=== PATIENT | male | born 1955 | race Caucasian/White ===

== ENCOUNTER 2020-06-30 11:23 | Emergency (ER) | payer OTHER ==
[~2020-06-30] VITALS: Ht 185.4 cm; Wt 102.1 kg
--- NOTE | 2020-06-30 11:50 | NUR ---
dr lowery at bedside for eval.
[2020-06-30] MEDS ORDERED: CEFTRIAXONE 1GM BAG (ER ONLY) 50 ML IV ONE (11:54)
[2020-06-30] MEDS ORDERED: KETOROLAC TROMETHAMINE INJ 30 MG/ML VIAL ONE (11:54)
[2020-06-30] MEDS ORDERED: CEFTRIAXONE 1GM BAG (ER ONLY) 1 GM/50 ML PIGGYBACK IV ONE (12:00)
[2020-06-30] MEDS ORDERED: IV NS 0.9% 1,000 ML BAG IV ONE (12:00)
[2020-06-30] MEDS ORDERED: KETOROLAC TROMETHAMINE INJ 30 MG/ML VIAL IV ONE (12:00)
--- NOTE | 2020-06-30 12:04 | NUR ---
iv line started blood drawn and sent to lab.
--- NOTE | 2020-06-30 12:07 | NUR ---
patient to radiology for abdominal ct scan via gurney.
[2020-06-30] MEDS ORDERED: AMLO-213 PO (12:20)
[2020-06-30] MEDS ORDERED: ISON300T27 PO (12:20)
[2020-06-30] MEDS ORDERED: ATOR20TA PO (12:20)
[2020-06-30] MEDS ORDERED: RAMI10CA69 PO (12:20)
[2020-06-30] MEDS ORDERED: ASPI-1498 PO (12:20)
[2020-06-30] MEDS ORDERED: BISO1TAB4 PO (12:20)
[2020-06-30] MEDS ORDERED: TAMS-12 PO (12:20)
[2020-06-30] MEDS ORDERED: HYDR-4077 PO (12:20)
[2020-06-30 12:44] LABS: BASOPHILS # (AUTO) 0.1 /CMM (0.0-0.2); BASOPHILS % (AUTO) 0.5 % (0.0-2.0); EOSINOPHILS % (AUTO) 0.6 % (0.0-6.0); HEMATOCRIT 38 % (39-51); HEMOGLOBIN 12.1 g/dL (13.5-17.5); LYMPHOCYTES % (AUTO) 28.5 % (20.0-44.0); MEAN CORPUSCULAR HGB CONC 32 g/dl (31.0-36.0); MEAN CORPUSCULAR VOLUME 86 fL (80-96); MONOCYTES # (AUTO) 0.9 /CMM (0.1-1.30); MONOCYTES % (AUTO) 8.2 % (2.0-12.0); NEUTROPHILS # (AUTO) 6.5 /CMM (1.8-8.9); NEUTROPHILS % (AUTO) 62.2 % (43.0-81.0); PLATELET COUNT (AUTO) 382 /CMM (150-450); WHITE BLOOD COUNT (AUTO) 10.4 K/uL (4.3-11.0)
[2020-06-30 12:59] LABS: CALCIUM, SERUM 9.1 mg/dL (8.5-10.1); POTASSIUM 4.2 mmol/L (3.5-5.1)
[2020-06-30 13:28] LABS: BILIRUBIN,URINE NEGATIVE (NEGATIVE); COLOR,URINE YELLOW (YELLOW); LEUKOCYTE ESTERASE ,URINE SMALL (NEGATIVE); NITRITE, URINE NEGATIVE (NEGATIVE); PROTEIN,URINE NEGATIVE (NEGATIVE); UGLUCOSE NEGATIVE (NEGATIVE); UROBILINOGEN,URINE 0.2 EU/dL (0.2)
[2020-06-30 13:49] LABS: BACTERIA,URINE Rare /HPF (None Seen)
[2020-06-30 13:50] LABS: SQUAMOUS EPITHELIAL CELL,UR Few /HPF (None Seen)
--- NOTE | 2020-06-30 14:17 | NUR ---
Patient discharged to home in stable condition. Written and verbal after care instructions given. Patient verbalizes understanding of instruction.IV removed. Catheter intact and site benign. Pressure and 4x4 applied to site. No bleeding noted.
[2020-06-30 14:18] VITALS: BP 132/84
== END 2020-06-30 14:18 | disposition home or self-care (01) ==
LOC: ER 11:35
DX: N34.2 Other urethritis (principal); I10 Essential (primary) hypertension; Z98.890 Other specified postprocedural states; Z87.442 Personal history of urinary calculi; Z79.899 Other long term (current) drug therapy
CPT/HCPCS: 36415; 74176; 80048; 81001; 85025; 87086; 96365; 96375; 99284; J0696; J1885; J7030

== ENCOUNTER 2021-06-21 12:24 | Inpatient (IN) | payer OTHER ==
[~2021-06-21] VITALS: Ht 185.4 cm; Wt 100.7 kg
[~2021-06-21 12:24] MED LIST: AMLO-213 PO; ASPI-1498 PO; ATOR20TA PO; BISO1TAB4 PO; HYDR-4077 PO; ISON300T27 PO; RAMI10CA69 PO; TAMS-12 PO
--- NOTE | 2021-06-21 12:30 | NUR ---
[facility]UELL[facility] HOME FOR NOTED CONFUSION UPON WAKING UP AT 0600. LKW 2200 LAST NIGHT BEFORE GOING TO BED. VITALS ARE WITHIN NORMAL LIMITS. BREATHING IS EVEN AND UNALBORED ON ROOM AIR. Addendum: 06/21/21 at 1348 by CARMELO URINE COLLECTED AND SENT
--- NOTE | 2021-06-21 13:06 | NUR ---
BG 108
--- NOTE | 2021-06-21 13:27 | NUR ---
PT TAKEN TO CT
--- NOTE | 2021-06-21 13:38 | NUR ---
PT RETURNED FROM CT
--- NOTE | 2021-06-21 13:46 | NUR ---
URINE COLLECTED AND SENT
--- NOTE | 2021-06-21 13:48 | NUR ---
LAB AT BEDSIDE
[2021-06-21] MEDS ORDERED: ERGO500093 PO (14:19)
[2021-06-21] MEDS ORDERED: FERR325T23 PO (14:19)
[2021-06-21] MEDS ORDERED: GABA-532 PO (14:19)
[2021-06-21] MEDS ORDERED: ASPI-1420 PO (14:19)
[2021-06-21] MEDS ORDERED: DOXA2TAB2 PO (14:19)
[2021-06-21] MEDS ORDERED: ASCO-352 PO (14:19)
[2021-06-21] MEDS ORDERED: AZIT250T13 MT (14:19)
[2021-06-21 14:44] LABS: BILIRUBIN,URINE NEGATIVE (NEGATIVE); COLOR,URINE YELLOW (YELLOW); LEUKOCYTE ESTERASE ,URINE TRACE (NEGATIVE); NITRITE, URINE NEGATIVE (NEGATIVE); PROTEIN,URINE TRACE mg/dl (NEGATIVE); UGLUCOSE NEGATIVE (NEGATIVE); UROBILINOGEN,URINE 0.2 EU/dL (0.2)
[2021-06-21 14:50] LABS: BASOPHILS # (AUTO) 0.1 K/uL (0.0-0.2); BASOPHILS % (AUTO) 0.9 % (0.0-2.0); EOSINOPHILS % (AUTO) 0.1 % (0.0-6.0); HEMATOCRIT 29 % (39-51); HEMOGLOBIN 9.4 g/dL (13.5-17.5); LYMPHOCYTES # (AUTO) 2.1 K/uL (0.8-4.8); LYMPHOCYTES % (AUTO) 24.4 % (20.0-44.0); MEAN CORPUSCULAR HGB CONC 32 g/dl (31.0-36.0); MEAN CORPUSCULAR VOLUME 87 fL (80-96); MONOCYTES # (AUTO) 0.9 K/uL (0.1-1.30); MONOCYTES % (AUTO) 10.6 % (2.0-12.0); NEUTROPHILS # (AUTO) 5.5 K/uL (1.8-8.9); PLATELET COUNT (AUTO) 260 K/uL (150-450); RED BLOOD CELL COUNT(AUTO) 3.37 MIL/uL (4.5-6.0); WHITE BLOOD COUNT (AUTO) 8.5 K/uL (4.3-11.0)
--- NOTE | 2021-06-21 15:16 | NUR ---
SPOKE TO PATIENTS DAUGHTER [phone]
[2021-06-21 16:01] LABS: CALCIUM, SERUM 9.3 mg/dL (8.5-10.1); CARBON DIOXIDE 26 mmol/L (21-32); CHLORIDE 100 mmol/L (98-107); CREATININE 2.1 mg/dL (0.6-1.3); GLUCOSE 115 mg/dL (74-106); POTASSIUM 4.1 mmol/L (3.5-5.1); SERUM AMMONIA 8 umol/L (11-32); SODIUM SERUM 134 mmol/L (136-145); UREA NITROGEN, BLOOD 31 mg/dL (7-18)
[2021-06-21 16:12] LABS: ALANINE AMINOTRANSFERASE 16 U/L (12-78); ALBUMIN 3.2 g/dL (3.4-5.0); ALKALINE PHOSPHATASE 99 U/L (46-116); ASPARTATE AMINOTRANSFERASE 19 U/L (15-37); BILIRUBIN,DIRECT 0.1 mg/dL (0.0-0.2); BILIRUBIN,TOTAL 0.2 mg/dL (0.2-1.0); TOTAL PROTEIN, SERUM 9.4 g/dL (6.4-8.2)
[2021-06-21 16:15] LABS: THYROID STIMULATING HORMONE 0.957 uIU/mL (0.358-3.74)
[2021-06-21 16:28] LABS: ACETAMINOPHEN < 0 ug/ml (10-30); ALCOHOL, BLOOD < 3 mg/dL (0-0)
[2021-06-21] MEDS ORDERED: AZITHROMYCIN 500 MG in IV D5W 250 ML IV ONE (16:30)
[2021-06-21] MEDS ORDERED: MORPHINE SULFATE INJ 2 MG/ML DISP.SYRIN IV PRN (16:30)
[2021-06-21] MEDS ORDERED: ONDANSETRON HCL/PF 4 MG/2 ML VIAL IVP PRN (16:30)
[2021-06-21] MEDS ORDERED: CEFTRIAXONE 1 G in IV D5W 50 ML IV ONE (16:30)
[2021-06-21] MEDS ORDERED: ACETAMINOPHEN 325 MG TABLET PO PRN (16:30)
[2021-06-21] MEDS ORDERED: Z GUARD REMEDY 4 OZ OINT TP PRN (16:30)
[2021-06-21 16:54] LABS: BACTERIA,URINE None seen /HPF (None Seen); RBC,URINE 0-2 /HPF (0-2); SQUAMOUS EPITHELIAL CELL,UR Rare /HPF (None Seen); WBC,URINE 0-2 /HPF (0-3)
[2021-06-21] MEDS ORDERED: IV NS 0.9% 250 ML IV ONE (17:39)
[2021-06-21] MEDS ORDERED: IOHEXOL-350 100 ML VIAL IV ONE (17:39)
--- NOTE | 2021-06-21 18:06 | NUR ---
COVID ANTIGEN SWAB OBTAINED AND SENT TO LAB
--- NOTE | 2021-06-21 19:37 | NUR ---
CALLED [facility] ER. SPOKE TO TRUPTI . CHARGE NURSE IS CRISTHIAN AND DEALING WITH TRAUMA PT AT THIS TIME.
--- NOTE | 2021-06-21 19:38 | NUR ---
MISTY KANG (+); LAW AWARE. CONTACT DROPLET ISO PRECAUTIONS IN PLACE
--- NOTE | 2021-06-21 19:42 | NUR ---
CALLED [facility] TRANSFER LINE. PER ANDREI THEY'RE AT [place]. WILL FAX OVER THE INQUIRIES FOR REVIEW AT [phone]
--- NOTE | 2021-06-21 20:00 | NUR ---
SPOKE TO CHACHO AT [facility] ([phone]) AND FAXED FACE SHEET AND CLINICALS TO [phone]
--- NOTE | 2021-06-21 20:04 | NUR ---
SPOKE TO HONORIO AT [facility]. THEY'RE COMPLETELY FULL AND UNABLE TO ACCEPT THE PT.
--- NOTE | 2021-06-21 20:14 | NUR ---
WADE ENG AT [facility] FOR POSSIBLE TRANSFER FOR HIGHER LOC
--- NOTE | 2021-06-21 20:51 | NUR ---
REC'D A CALL FROM ELAINE AT [facility]. CASE IS REVIEWED. UNABLE TO ACCPET THE PT DUE TO AT [facility]
[2021-06-21] MEDS ORDERED: CEFEPIME 2 GM in IV D5W 100 ML IV SCH (21:00)
[2021-06-21] MEDS: hydrALAZINE HCL 50 MG TABLET PO SCH (21:03)
[2021-06-21] MEDS: VANCOMYCIN 1.5 GM in IV D5W 500 ML IV SCH (21:03)
[2021-06-21] MEDS: DOXAZOSIN MESYLATE (1 MG) 1 MG TABLET PO SCH (21:03)
[2021-06-21] MEDS: FERROUS SULFATE (325 MG) 325 MG/TAB TABLET PO SCH (21:03)
[2021-06-21] MEDS: ENOXAPARIN SODIUM 40 MG/0.4 ML DISP.SYRIN SQ SCH (21:05)
[2021-06-21] MEDS ORDERED: GABAPENTIN 300 MG CAPSULE ONE (21:33)
[2021-06-21] MEDS ORDERED: ATORVASTATIN 10 MG TABLET ONE (21:33)
[2021-06-21] MEDS: ATORVASTATIN 10 MG TABLET PO SCH (21:41)
[2021-06-21] MEDS: GABAPENTIN 300 MG CAPSULE PO SCH (21:41)
--- NOTE | 2021-06-21 22:56 | NUR ---
ADL'S DONE. LARGE BM X1 & URINE X2. PATIENT KEPT CLEAN AND DRY. PT SATTING 88% R/A WHEN SLEEPING. PUT ON O2 2LPM VIA N/C; SATTING 95%
[2021-06-21] MEDS: IV NS 0.9% 1,000 ML IV PRN (23:25)
[2021-06-22] MEDS ORDERED: PIPERACILLIN /TAZOBACTAM 2.25 G VIAL IV ONE (02:18)
[2021-06-22] MEDS: PIPERACILLIN /TAZOBACTAM 2.25 G in IV D5W 50 ML IV SCH ×4 (02:28→17:49)
--- NOTE | 2021-06-22 04:26 | NUR ---
LAB AT BEDSIDE
[2021-06-22 05:17] LABS: BASOPHILS % (AUTO) 0.3 % (0.0-2.0); HEMATOCRIT 32 % (39-51); HEMOGLOBIN 10.2 g/dL (13.5-17.5); LYMPHOCYTES # (AUTO) 0.8 K/uL (0.8-4.8); MEAN CORPUSCULAR HGB CONC 32 g/dl (31.0-36.0); MEAN CORPUSCULAR VOLUME 85 fL (80-96); MONOCYTES # (AUTO) 1.2 K/uL (0.1-1.30); MONOCYTES % (AUTO) 6.8 % (2.0-12.0); NEUTROPHILS # (AUTO) 14.8 K/uL (1.8-8.9); NEUTROPHILS % (AUTO) 87.9 % (43.0-81.0); PLATELET COUNT (AUTO) 271 K/uL (150-450); RED BLOOD CELL COUNT(AUTO) 3.74 MIL/uL (4.5-6.0); WHITE BLOOD COUNT (AUTO) 16.9 K/uL (4.3-11.0)
[2021-06-22 05:27] LABS: BILIRUBIN,TOTAL 0.1 mg/dL (0.2-1.0); CALCIUM, SERUM 8.6 mg/dL (8.5-10.1); CREATININE 2.1 mg/dL (0.6-1.3); PHOSPHORUS 3.3 mg/dL (2.5-4.9); POTASSIUM 4.1 mmol/L (3.5-5.1); TOTAL PROTEIN, SERUM 8.9 g/dL (6.4-8.2)
--- NOTE | 2021-06-22 05:37 | NUR ---
ADLS DONE. REPOSITIONED PT. LARGE URINE X1. PT KEPT CLEAN AND DRY. VSS. PT TOLERATING 2LPM VIA N/C AT 98%
--- NOTE | 2021-06-22 07:18 | NUR ---
CALLED BERNARDO (DAUGHTER) [phone] FOR CONSENT FOR US GUIDED THORACENTESIS L LARGE PLEURAL EFFUSION. DAUGHTER WILL SPEAK TO PT'S ONCOLOGIST AND INFORM STAFF DECISION OF PROCEDURE.
--- NOTE | 2021-06-22 08:20 | NUR ---
FOLLOWED UP WITH DAUGHTER BERNARDO ABOUT GETTING COSENT FOR ASHLEY AND SHE WAS UNABLE TO CONTACT HIS ONCOLOGIST AT THE MOMENT. SHE STATED THE OFFICE OPENS AT 0900. WILL FOLLOW UP.
[2021-06-22] MEDS ORDERED: VANCOMYCIN HCL 1.25 GM in IV D5W 260 ML IV SCH (09:00)
[2021-06-22] MEDS ORDERED: FERROUS SULFATE (325 MG) 325 MG/TAB TABLET ONE (09:42)
[2021-06-22] MEDS ORDERED: ATENOLOL 50 MG TABLET ONE (09:42)
[2021-06-22] MEDS ORDERED: ASCORBIC ACID 500 MG TABLET ONE (09:42)
[2021-06-22] MEDS ORDERED: ASPIRIN EC 81 MG TABLET.DR PO ONE (09:42)
[2021-06-22] MEDS ORDERED: AMLODIPINE BESYLATE 10 MG TABLET ONE (09:43)
[2021-06-22] MEDS ORDERED: LISINOPRIL (20MG) 20 MG TABLET ONE (09:43)
--- NOTE | 2021-06-22 09:44 | NUR ---
CARDIAC DIET REGULAR ORDER OBTAINED FROM DR AMBRIZ. THE ORDER IS READ BACK, VERIFIED. NOTED AND CARRIED OUT
[2021-06-22] MEDS: ASPIRIN EC 81 MG TABLET.DR PO SCH (09:46)
[2021-06-22] MEDS: FERROUS SULFATE (325 MG) 325 MG/TAB TABLET PO SCH ×2 (09:47→17:40)
[2021-06-22] MEDS: ASCORBIC ACID 500 MG TABLET PO SCH (09:47)
[2021-06-22] MEDS: hydrALAZINE HCL 50 MG TABLET PO SCH ×3 (10:00→17:41)
[2021-06-22] MEDS: AMLODIPINE BESYLATE 10 MG TABLET PO SCH (10:00)
[2021-06-22] MEDS: HYDROCHLOROTHIAZIDE 25 MG TABLET PO SCH (10:00)
[2021-06-22] MEDS: ATENOLOL 50 MG TABLET PO SCH (10:00)
[2021-06-22] MEDS: LISINOPRIL (20MG) 20 MG TABLET PO SCH (10:00)
--- NOTE | 2021-06-22 10:12 | NUR ---
RECIVED CONSENT FROM DAUGHTER BERNARDO FOR THORANCENTESIS OVER THE PHONE, CONFIRMED BY LIBORIO JAUREGUI.
[2021-06-22] MEDS ORDERED: HYDROCHLOROTHIAZIDE 25 MG TABLET ONE (10:16)
[2021-06-22] MEDS ORDERED: TRIAZOLAM 0.125 MG TABLET PO SCH (11:30)
--- NOTE | 2021-06-22 11:48 | NUR ---
PT SLEEPING IN MED, EASILY AROUSABLE. VS STABLE. WILL CONTINUE TO MONITOR.
[2021-06-22] MEDS ORDERED: hydrALAZINE HCL 50 MG TABLET ONE (13:33)
--- NOTE | 2021-06-22 13:50 | NUR ---
DR. ZENG CONTACTED REGARDING BP 86/53
[2021-06-22] MEDS ORDERED: MIDODRINE HCL (5MG) 5 MG TABLET ONE (14:25)
[2021-06-22] MEDS ORDERED: MIDODRINE HCL (5MG) 5 MG TABLET PO STA (14:26)
--- NOTE | 2021-06-22 14:27 | NUR ---
RECEIVED ORDERS FROM DR AMBRIZ: NORMAL SALINE 1000 ML WIDE OPEN ONCE AND MIDODRINE 10MG PO ONCE STAT. THE ORDERS ARE READ BACK, VERIFIED. NOTED AND CARRIED OUT.
[2021-06-22] MEDS ORDERED: IV NS 0.9% 1,000 ML IV ONE (14:30)
--- NOTE | 2021-06-22 15:28 | NUR ---
Giselle duran in [facility] - 06/22/21 at 1538 by [place] [id number]
--- NOTE | 2021-06-22 15:38 | NUR ---
ROOM 116-2
--- NOTE | 2021-06-22 15:50 | NUR ---
PER DR AMBRIZ, INCREASE FLUID RATE TO 100ML/HR
--- NOTE | 2021-06-22 16:01 | NUR ---
REPORT GIVEN TO JUVENTINO JULES
--- NOTE | 2021-06-22 16:20 | NUR ---
PT TRANSPORTED TO FLOOR FOLLOWING [facility] WITH EMT AND RN
--- NOTE | 2021-06-22 16:30 | NUR ---
RN ADMITTING NOTES RECEIVED PATIENT FROM ER DEPT. REPORT TAKEN FROM QUANG JAUREGUI. PATIENT ADMITTING DX IS AMS, PATIENT IS COVID POSITIVE, PATIENT AWAKE, ALERT/ORIENTED X 1, CONFUSED. BREATHING EVEN AND UNLABORED ON O2 2LPM VIA NC TOLERATING WELL. VITAL SIGNS: TEMP-98.2, HR-85, RR-20, O2 SAT-99%, BP-104/72. PATIENT HAS IV ACCESS ON RIGHT AC #20G PATENT AND INTACT INFUSING NS 100 ML/HR. PATIENT HAS CHEMO PORT ON RIGHT CHEST AND SCAR ON LEFT BACK, S/P THORACENTESIS WITH INTACT DRESSING ON LEFT BACK, INTACT NO BLEEDING NOTED. PHOTOS TAKEN AND PUT IN CHART. ALL APPLICABLE ISOLATION PRECAUTIONS IN PLACE. ALL SAFETY MEASURES IN PLACE. HOB ELEVATED. BED LOCKED AND IN LOWEST POSITION SIDERAILS UP. CALL LIGHT WITHIN REACH. WILL CONTINUE TO MONITOR PATIENT ACCORDINGLY.
[2021-06-22] MEDS: DOXAZOSIN MESYLATE (1 MG) 1 MG TABLET PO SCH (17:40)
--- NOTE | 2021-06-22 19:35 | NUR ---
RN OPENING NOTES PATIENT RECEIVED IN BED ALERT, AWAKE, ORIENTED X1, VERBALLY RESPONSIVE. LITHUANIAN SPEAKING. ON O2 2LPM VIA N/C AND TOLERATING WELL. NO SOB NOTED. BREATHING EVEN AND UNLABORED. IV ACCESS RAC WITH 18G INTACT AND PATENT, INFUSING NS @ 100ML/HR. NO S/S OF INFILTRATIONS. NO FACIAL GRIMACING NOTED. NO ACUTE DISTRESS. ALL SAFETY MEASURES IN PLACE. BED LOCKED AND IN LOWEST POSITION. SIDERAILS UP X3. PLACE CALL LIGHT WITHIN REACH. WILL CONTINUE TO MONITOR
--- NOTE | 2021-06-22 19:47 | NUR ---
RN CLOSING NOTES PATIENT IN STABLE CONDITION THROUGHOUT SHIFT. ON O2 2LPM VIA NC, TOLERATING WELL. BREATHING EVEN AND UNLABORED. NO SOB OR ANY SIGNS OF RESPIRATORY DISTRESS NOTED. IV ACCESS ON RIGHT AC #18G INTACTAND PATENT INFUSING NS @ 100ML/HR. NO SIGNS OF INFILTRATIONS. ALL DUE MEDS GIVEN ORDERED. ALL NEEDS ATTENDED. KEPT DRY AND CLEAN. ALL APPLICABLE ISOLATIONS PRECAUTIONS IN PLACE. ALL SAFETY MEASURES IN PLACE. BED LOCKED AND IN LOWEST POSITION WITH SIDERAILS UP. CALL LIGHT PLACED WITHIN REACH. ENDORSE TO ONCOMING NURSE FOR DUSTY.
[2021-06-22 20:00] VITALS: BP 88/48
[2021-06-22] MEDS: VANCOMYCIN 1.5 GM in IV D5W 500 ML IV SCH (20:09)
--- NOTE | 2021-06-22 21:15 | NUR ---
RN NOTES: PT'S IV ACCES ON RAC INFILTRATED. TRIED SEVERAL TIMES. UNABLE TO INSERT ANOTHER ONE. NOTIFIED LAWSON SWARTZ. ORDER MIDLINE INSERTION. NOTED AND CARRIED OUT. EDUCATION TECHNICIAN AWARE. WILL CONTINUE TO MONITOR
--- NOTE | 2021-06-22 21:37 | NUR ---
RN NOTES: TALKED TO DAUGHTER SANDY. SHE WANTS HER FATHER TO BE FULL CODE. NOTIFIED DR. PATSY PATHAK. HE AGREED. ORDER MADE
[2021-06-22] MEDS: ENOXAPARIN SODIUM 40 MG/0.4 ML DISP.SYRIN SQ SCH (21:42)
[2021-06-22] MEDS: GABAPENTIN 300 MG CAPSULE PO SCH (21:42)
[2021-06-22] MEDS: ATORVASTATIN 10 MG TABLET PO SCH (21:43)
[2021-06-23] VITALS: BP 98/53
--- NOTE | 2021-06-23 01:00 | NUR ---
RN NOTES: MIDLINE INSERTED BY MIDLINE NURSE ON MANSOOR #18G. INTACT AND PATENT. NO BLEEDING NOTED. PT TOLERATED WELL.
[2021-06-23] MEDS: PIPERACILLIN /TAZOBACTAM 2.25 G in IV D5W 50 ML IV SCH ×3 (01:13→12:06)
[2021-06-23 04:00] VITALS: BP 99/46
[2021-06-23] MEDS: IV NS 0.9% 1,000 ML IV PRN (04:33)
[2021-06-23 07:00] LABS: CREATININE 3.3 mg/dL (0.6-1.3); PHOSPHORUS 6.1 mg/dL (2.5-4.9); POTASSIUM 4.4 mmol/L (3.5-5.1)
[2021-06-23] MEDS ORDERED: MIDODRINE HCL (5MG) 5 MG TABLET PO SCH ×2 (07:30→13:00)
--- NOTE | 2021-06-23 07:35 | NUR ---
RN OPENING NOTES RECEIVED PATIENT IN BED ALERT, AWAKE, ORIENTED X1, VERBALLY RESPONSIVE. LUXEMBOURGISH SPEAKING. ON O2 2LPM VIA N/C AND TOLERATING WELL. ON TELE MONITOR READING SB- HR 58. NO SOB NOTED OR ANY DISTRESS NOTED.. BREATHING EVEN AND UNLABORED. IV ACCESS ON MANSOOR MIDLINE INTACT AND PATENT, INFUSING NS @ 100ML/HR. NO S/S OF INFILTRATIONS. NO FACIAL GRIMACING NOTED. ALL APPLICABLE ISOLATION PRECAUTIONS IN PLACE. ALL SAFETY MEASURES IN PLACE. HOB ELEVATED. BED LOCKED AND IN LOWEST POSITION. SIDERAILS UP X3. PLACE CALL LIGHT WITHIN REACH. WILL CONTINUE TO MONITOR PATIENT ACCORDINGLY.
[2021-06-23 07:49] LABS: BASOPHILS % (AUTO) 0.5 % (0.0-2.0); EOSINOPHILS % (AUTO) 0.3 % (0.0-6.0); HEMATOCRIT 28 % (39-51); HEMOGLOBIN 9.3 g/dL (13.5-17.5); LYMPHOCYTES # (AUTO) 1.9 K/uL (0.8-4.8); LYMPHOCYTES % (AUTO) 25.4 % (20.0-44.0); MEAN CORPUSCULAR HGB CONC 33 g/dl (31.0-36.0); MEAN CORPUSCULAR VOLUME 86 fL (80-96); MONOCYTES # (AUTO) 0.9 K/uL (0.1-1.30); MONOCYTES % (AUTO) 11.4 % (2.0-12.0); NEUTROPHILS # (AUTO) 4.7 K/uL (1.8-8.9); NEUTROPHILS % (AUTO) 62.4 % (43.0-81.0); PLATELET COUNT (AUTO) 224 K/uL (150-450); RED BLOOD CELL COUNT(AUTO) 3.31 MIL/uL (4.5-6.0); WHITE BLOOD COUNT (AUTO) 7.5 K/uL (4.3-11.0)
[2021-06-23 08:00] VITALS: BP 94/49
[2021-06-23 08:54] LABS: ALBUMIN 2.6 g/dL (3.4-5.0); BILIRUBIN,DIRECT 0.1 mg/dL (0.0-0.2); BILIRUBIN,TOTAL 0.2 mg/dL (0.2-1.0); TOTAL PROTEIN, SERUM 7.7 g/dL (6.4-8.2)
[2021-06-23] MEDS: ASPIRIN EC 81 MG TABLET.DR PO SCH (08:57)
[2021-06-23] MEDS: FERROUS SULFATE (325 MG) 325 MG/TAB TABLET PO SCH (08:57)
[2021-06-23] MEDS: ASCORBIC ACID 500 MG TABLET PO SCH (08:57)
[2021-06-23] MEDS: hydrALAZINE HCL 50 MG TABLET PO SCH ×2 (08:58→12:06)
[2021-06-23] MEDS: LISINOPRIL (20MG) 20 MG TABLET PO SCH (08:59)
[2021-06-23] MEDS: HYDROCHLOROTHIAZIDE 25 MG TABLET PO SCH (08:59)
[2021-06-23] MEDS: AMLODIPINE BESYLATE 10 MG TABLET PO SCH (08:59)
[2021-06-23] MEDS: ATENOLOL 50 MG TABLET PO SCH (09:00)
[2021-06-23] MEDS ORDERED: LEVO750T46 PO (10:47)
[2021-06-23 12:00] VITALS: BP 101/48
[2021-06-23 12:06] VITALS: BP 101/48
--- NOTE | 2021-06-23 12:26 | NUR ---
RN NOTES PATIENT ON ROOM AIR TOLERATING WELL WITH SATURATION AT 96%. BREATHING EVEN AND UNLABORED. NO SOB OR ANY ACUTE DISTRESS NOTED. NO NEED FOR SUPPLEMENTAL OXYGEN. OK FOR DISCHARGE. FRONT OFFICE AGENT MADE AWARE.
--- NOTE | 2021-06-23 13:15 | NUR ---
RN NOTES PATIENT DISCHARGED IN STABLE CONDITION. ON ROOM AIR TOLERATING WELL. BREATHING EVEN AND UNLABORED. NO SOB OR ANY ACUTE DISTRESS NOTED. NO CO/O PAIN/DISCOMFORT AT THE TIME. REMOVED TELE MONITOR AND MIDLINE FROM PATIENT, TOLERATED WELL SCANT BLEEDING NOTED. ALL BELONGINGS ACCOUNTED FOR, SIGNED AND GIVEN TO PATIENT. DISCHARGE INSTRUCTIONS SIGNED AND GIVEN TO PATIENT. ALL DUE MEDS GIVEN ORDERED. KEPT PATIENT DRY AND CLEAN. ALL NEEDS MET. PATIENT WHEELED OUT OF HOSPITAL. DAUGHTER BERNARDO WAITING OUTSIDE. PATIENT LEFT HOSPITAL VIA PRIVATE CAR WITH DAUGHTER.
[2021-06-27] MEDS ORDERED: ERGOCALCIFEROL (VITAMIN D 2) 50,000 UNIT CAPSULE PO SCH (16:30)
== END 2021-06-23 13:33 | disposition home or self-care (01) | DRG 137 ==
LOC: ER 12:41 → MED 18:59 → UNDOADMIN 18:59 → TRANSITION 21:33 → TELE 06-22 15:50 → TELE1 06-22 17:05
PROVIDERS: ADMIT Internal Medicine; ATTEND Internal Medicine
PROC: 0W9B3ZZ Drainage of Left Pleural Cavity, Percutaneous Approach (ICD-10-PCS; 2021-06-22)
PROC: 05HA33Z Insertion of Infusion Device into Left Brachial Vein, Percutaneous Approach (ICD-10-PCS; principal; 2021-06-23)
DX: U07.1 COVID-19 (principal); J12.82 Pneumonia due to coronavirus disease 2019; G93.41 Metabolic encephalopathy; N17.9 Acute kidney failure, unspecified; J90 Pleural effusion, not elsewhere classified; D64.9 Anemia, unspecified; C34.90 Malignant neoplasm of unspecified part of unspecified bronchus or lung; I12.9 Hypertensive chronic kidney disease with stage 1 through stage 4 chronic kidney disease, or unspecified chronic kidney disease; N18.9 Chronic kidney disease, unspecified; I71.2 Thoracic aortic aneurysm, without rupture; E78.5 Hyperlipidemia, unspecified; Z87.442 Personal history of urinary calculi; Z90.2 Acquired absence of lung [part of]; Z98.61 Coronary angioplasty status; Z79.82 Long term (current) use of aspirin; Z79.899 Other long term (current) drug therapy; K44.9 Diaphragmatic hernia without obstruction or gangrene; N28.89 Other specified disorders of kidney and ureter; Z98.890 Other specified postprocedural states; Z92.21 Personal history of antineoplastic chemotherapy
CPT/HCPCS: 36415; 70450-TC; 71045-TC; 80048-TC; 80053-TC; 80076-TC; 81001; 82140-TC; 82962-TC; 83605-TC; 83735-TC; 83970; 84100-TC; 84443-TC; 84484-TC; 85025-TC; 85652-TC; 85730-TC; 86140-TC; 87040-TC; 87081-TC; 97110-TC; 97116-TC; 97530-TC; 97535-TC; G0378; G0480; J0456; J0692; J0696; J1650; J2543; J3370; J7030; J7050; J7060; Q9967